=== PATIENT | male | born 1945 | race Caucasian/White ===

== ENCOUNTER 2023-02-08 01:23 | Emergency (ER) | payer BC, SELFPAY ==
[2023-02-08] VITALS (9 sets, daily range): BP systolic 107–142; BP diastolic 55–70; PULSE 60–75; RESP 16–23; TEMP 35.6; O2SAT 95–99; BMI 21.7
--- NOTE | 2023-02-08 01:53 | DI.RAD.S_ITS ---
PROCEDURE: XR CHEST 1V INDICATIONS: chest pain TECHNIQUE: One view of the chest was acquired. COMPARISON: None. FINDINGS: Surgical changes and devices: None. Lungs and pleura: Lungs are clear. No pleural effusions or pneumothorax. Mediastinum: Mediastinal contours appear normal. Heart size is normal. Bones and chest wall: No suspicious bony lesions. Overlying soft tissues appear unremarkable. IMPRESSION: No acute cardiopulmonary abnormality. There is no significant discrepancy when compared to the overnight preliminary report. Approved by: Leonidas Ridley M.D. on 02/08/2023 at 8:11
--- NOTE | 2023-02-08 01:54 | ED.CHESTPAIN ---
HPI - Chest Pain General Chief Complaint: Back Pain/Injury Stated Complaint: pain in back left side Time Seen by Provider: 02/08/23 01:46 Source: patient Mode of arrival: Ambulatory Limitations: no limitations History of Present Illness HPI narrative: Patient 77-year-old male history of diabetes hypertension presenting today with diarrhea diaphoresis and left shoulder pain. He reports that he was having some body aches before bed he has been constipated he took some smooth move tea earlier woke up, found he was drenched in sweat got up to have a bowel movement and then noted some left shoulder pain. He is reports that he was muscle spasm definitely hurt to move his arm sometimes he gets muscle spasms in his neck he was not having any chest pain or shortness of breath. No nausea or vomiting. No longer having any abdominal pain. Overall feeling better. Related Data Allergies Allergy/AdvReac Type Severity Reaction Status Date / Time No Known Drug Allergies Allergy Verified 02/08/23 01:49 Review of Systems Review of Systems ROS Unobtainable: All systems reviewed & are unremarkable except as noted in HPI and below Patient History Social History Smoking Status: Never smoker Smoking Status: Never smoker alcohol intake frequency: 0-2 drinks per day Substance Use Type: does not use Exam Initial Vital Signs Initial Vital Signs: Vital Signs Temperature 96.1 F L 02/08/23 01:41 Pulse Rate 66 02/08/23 01:41 Respiratory Rate 20 02/08/23 01:41 Blood Pressure 142/68 H 02/08/23 01:41 Pulse Oximetry 99 02/08/23 01:41 Oxygen Delivery Method Room Air 02/08/23 01:41 GENERAL: Alert pleasant well-appearing 7-year-old male and in no acute distress. HEENT: Head atraumatic,EOMI, pupils reactive, face symmetric, moist mucous membranes CARDIOVASCULAR: Regular rate and rhythm without murmurs, rubs or gallops. RESPIRATORY: Breath sounds equal bilaterally, no wheezes rales or rhonchi. ABDOMEN: Soft, nontender. Normoactive bowel sounds all 4 quadrants. No guarding or rebound. BACK: Pinpoint tenderness in left shoulder blade pain is reproducible EXTREMITIES: Normal range of motion, no clubbing or edema. Neurovascularly intact NEUROLOGICAL: Alert and oriented x4.Normal gait and speech. Cranial nerves II through XII grossly intact. SKIN: Warm, dry, no laceration, no petechiae, no rashes or lesions. Course Orders Ordered: ED Orders 02/08/23 01:50 EKG-12 Lead Stat 02/08/23 01:53 XR chest 1V Stat 02/08/23 02:00 Complete Blood Count AUTO DIFF Stat Comprehensive Metabolic Panel Stat Lipase Stat Magnesium Stat PTT Partial Thromboplastin Masood Stat Prothrombin Time INR Stat Troponin & CK Cardiac Panel Stat 02/08/23 03:35 Trop I [Troponin I] Stat Discontinued Medications Acetaminophen (Acetaminophen 325 Mg Tablet) 975 mg PO NOW ONE Stop: 02/08/23 04:25 Last Admin: 02/08/23 04:30 Dose: 975 mg Documented By: SOL Aspirin (Aspirin 81 Mg Chew Tab) 324 mg PO NOW ONE Stop: 02/08/23 01:54 Last Admin: 02/08/23 02:17 Dose: Not Given Documented By: CHETNA Vital Signs Vital signs: Vital Signs - 8 hr 02/08/23 01:41 02/08/23 01:55 02/08/23 02:00 Temperature 96.1 F L Pulse Rate 66 67 69 Respiratory Rate 20 23 Blood Pressure 142/68 H Pulse Oximetry 99 Oxygen Delivery Method Room Air 02/08/23 02:05 02/08/23 02:05 02/08/23 02:30 Temperature Pulse Rate 63 Respiratory Rate 20 Blood Pressure 124/56 L 120/59 L Pulse Oximetry 97 Oxygen Delivery Method Room Air 02/08/23 02:30 02/08/23 03:00 02/08/23 03:00 Temperature Pulse Rate 63 60 Respiratory Rate 17 16 Blood Pressure 107/55 L Pulse Oximetry 97 95 Oxygen Delivery Method Room Air Room Air 02/08/23 03:30 02/08/23 03:30 02/08/23 04:00 Temperature Pulse Rate 75 Respiratory Rate 19 Blood Pressure 115/70 127/61 Pulse Oximetry 98 Oxygen Delivery Method 02/08/23 04:00 02/08/23 04:23 02/08/23 04:23 Temperature Pulse Rate 61 Respiratory Rate 19 Blood Pressure 115/62 Pulse Oximetry 97 98 Oxygen Delivery Method MDM - Chest Pain Lab Data 02/08/23 02:00 02/08/23 02:00 Labs: Lab Results 06/23/23 06/23/23 06/23/23 Range/Units 02:00 02:00 02:00 WBC 5.7 (4.5-11.0) X10^3/uL RBC 3.73 L (4.5-5.9) X10^6/uL Hgb 11.8 L (13.5-17.5) g/dL Hct 34.7 L (41-53) % MCV 93.1 (80-100) fL MCH 31.6 (26-34) PG MCHC 33.9 (30-36) % RDW 13.6 (11.6-14.8) % Plt Count 212 (150-400) X10^3/uL Neut % (Auto) 59.5 (50-75) % Lymph % (Auto) 22.5 L (25-40) % Woodruff % (Auto) 13.1 (3-14) % Eos % (Auto) 4.3 H (2-4) % Baso % (Auto) 0.6 (0-2) % Neut # (Auto) 3400 (6557-5560) /uL Lymph # (Auto) 1300 (0994-3107) /uL Woodruff # (Auto) 700 (0-900) /uL Eos # (Auto) 200 (0-450) /uL Baso # (Auto) 0 (0-100) /uL PT 11.3 (10.1-12.7) SECONDS INR 1.0 (0.9-1.3) APTT 25 L (26-36) SECONDS Sodium 137 (137-145) mmol/L Potassium 3.9 (3.4-5.1) mmol/L Chloride 102 (98-107) mmol/L Carbon Dioxide 24 (22-32) mmol/L BUN 32 H (9-20) mg/dL Creatinine 1.26 H (0.66-1.25) mg/dL Estimated GFR 59 L (>60) mL/min BUN/Creatinine Ratio 25.4 H (6-22) Glucose 182 H (80-110) mg/dL Calcium 9.4 (8.4-10.2) mg/dL Magnesium 1.4 L (1.6-2.3) mg/dL Total Bilirubin 0.3 (0.2-1.3) mg/dL AST 26 (17-59) IU/L ALT 28 (<50) IU/L Alkaline Phosphatase 92 (38-126) U/L Total Creatine Kinase 95 (55-170) U/L CK-MB (CK-2) TNP CK-MB (CK-2) Rel Index TNP Troponin I < 0.012 (0.01-0.034) ng/mL Total Protein 7.5 (6.3-8.2) g/dL Albumin 4.0 (3.5-5.0) g/dL Globulin 3.5 (1.7-4.1) g/dL Albumin/Globulin Ratio 1.1 (1.0-2.8) Lipase 160 (23-300) U/L 02/08/23 Range/Units 03:35 WBC (4.5-11.0) X10^3/uL RBC (4.5-5.9) X10^6/uL Hgb (13.5-17.5) g/dL Hct (41-53) % MCV (80-100) fL MCH (26-34) PG MCHC (30-36) % RDW (11.6-14.8) % Plt Count (150-400) X10^3/uL Neut % (Auto) (50-75) % Lymph % (Auto) (25-40) % Woodruff % (Auto) (3-14) % Eos % (Auto) (2-4) % Baso % (Auto) (0-2) % Neut # (Auto) (8948-8160) /uL Lymph # (Auto) (9928-2068) /uL Woodruff # (Auto) (0-900) /uL Eos # (Auto) (0-450) /uL Baso # (Auto) (0-100) /uL PT (10.1-12.7) SECONDS INR (0.9-1.3) APTT (26-36) SECONDS Sodium (137-145) mmol/L Potassium (3.4-5.1) mmol/L Chloride (98-107) mmol/L Carbon Dioxide (22-32) mmol/L BUN (9-20) mg/dL Creatinine (0.66-1.25) mg/dL Estimated GFR (>60) mL/min BUN/Creatinine Ratio (6-22) Glucose (80-110) mg/dL Calcium (8.4-10.2) mg/dL Magnesium (1.6-2.3) mg/dL Total Bilirubin (0.2-1.3) mg/dL AST (17-59) IU/L ALT (<50) IU/L Alkaline Phosphatase (38-126) U/L Total Creatine Kinase (55-170) U/L CK-MB (CK-2) CK-MB (CK-2) Rel Index Troponin I < 0.012 (0.01-0.034) ng/mL Total Protein (6.3-8.2) g/dL Albumin (3.5-5.0) g/dL Globulin (1.7-4.1) g/dL Albumin/Globulin Ratio (1.0-2.8) Lipase (23-300) U/L Imaging Data Chest x-ray: Radiologist's Impression: Preliminary report no acute finding ECG Data Interpretation: Sinus rhythm rate 70 IN interval 176 QRS [address] changes right bundle-branch block noted no priors to compare MDM Narrative Medical decision making narrative: Patient 77-year-old male history of diabetes presenting today with right symptoms. He was previously constipated had some smooth move tea then had an episode of diarrhea tonight just prior he got extremely diaphoretic. Also having left shoulder pain which is worse with palpation and movement. Abdomen is soft nontender no nausea or vomiting. Blood work is reassuring no leukocytosis mild anemia hemoglobin 11.8 without evidence of active bleeding, BUN 32 creatinine 1.26 but no other electrolyte abnormalities glucose is 182. I questioned patient about his kidney function who reports that he has had kidney function the past and was told to just drink more fluid. He has 2- troponins pain in back is definitely reproducible seems very musculoskeletal and unlikely to be cardiac in nature. I suspect the diaphoresis he experience was secondary to some diarrhea. Mildly anemic but denies any rectal bleeding. At this time recommend outpatient follow-up with his primary care provider. Discharge Plan Departure Patient Disposition: Home Clinical Impression: Atypical chest pain, Diarrhea, FATMATA (acute kidney injury) Instructions: DI for Atypical Chest Pain Activity Restrictions/Additional Instructions: *You have been diagnosed with atypical chest pain, diarrhea *What to do: At this please talk with your provider about further cardiac workup. However this is not related to your heart. The sweating was probably related to diarrhea. Your kidney function is slightly abnormal please follow with your PCP. *Continue to take medications as directed *Follow up with your primary care provider in 2-3 days or call [phone] *Return to ER if you should have increasing pain chest pain shortness of breath sweatiness or any new, worsening or concerning symptoms Stand Alone Forms: Patient Portal/API
[2023-02-08 02:30] LABS: Prothrombin Time 11.3 SECONDS (10.1-12.7)
[2023-02-08 02:32] LABS: Add Manual Diff / Slide Review NO; Basophils Absolute Auto 0 /uL (0-100); Basophils Percent Auto 0.6 % (0-2); Eosinophils Absolute Auto 200 /uL (0-450); Eosinophils Percent Auto 4.3 % (2-4); Hematocrit 34.7 % (41-53); Hemoglobin 11.8 g/dL (13.5-17.5); Lymphocytes Absolute Auto 1300 /uL (1100-4500); Lymphocytes Percent Auto 22.5 % (25-40); Mean Corpuscular HGB Conc 33.9 % (30-36); Mean Corpuscular Hemoglobin 31.6 PG (26-34); Mean Corpuscular Volume 93.1 fL (80-100); Monocytes Absolute Auto 700 /uL (0-900); Monocytes Percent Auto 13.1 % (3-14); Neutrophils Absolute Auto 3400 /uL (1500-7000); Neutrophils Percent Auto 59.5 % (50-75); Platelet Count 212 X10^3/uL (150-400); Red Blood Cell Count 3.73 X10^6/uL (4.5-5.9); Red Cell Distribution Width 13.6 % (11.6-14.8); White Blood Cell Count 5.7 X10^3/uL (4.5-11.0)
[2023-02-08 02:33] LABS: PTT Partial Thromboplastin Tim 25 SECONDS (26-36)
[2023-02-08 02:35] LABS: Alanine Aminotransferase 28 IU/L (<50); Albumin Globulin Ratio 1.1 (1.0-2.8); Alkaline Phosphatase 92 U/L (38-126); Aspartate Aminotransferase 26 IU/L (17-59); BUN Creatinine Ratio 25.4 (6-22); Bilirubin Total 0.3 mg/dL (0.2-1.3); Blood Urea Nitrogen 32 mg/dL (9-20); Calcium 9.4 mg/dL (8.4-10.2); Carbon Dioxide 24 mmol/L (22-32); Chloride 102 mmol/L (98-107); Creatine Kinase 95 U/L (55-170); Estimated Glomerular Filt Rate 59 mL/min (>60); Globulin 3.5 g/dL (1.7-4.1); Glucose 182 mg/dL (80-110); HEMOLYSIS < 15 (0-50); Lipase 160 U/L (23-300); Magnesium 1.4 mg/dL (1.6-2.3); Potassium 3.9 mmol/L (3.4-5.1); Sodium 137 mmol/L (137-145); Total Protein 7.5 g/dL (6.3-8.2)
[2023-02-08 02:46] LABS: Troponin I < 0.012 ng/mL (0.01-0.034)
[2023-02-08 04:08] LABS: Troponin I < 0.012 ng/mL (0.01-0.034)
[2023-02-08] MEDS: ACETAMINOPHEN 325 MG TABLET 975 MG PO (04:30)
== END 2023-02-08 04:32 | disposition home or self-care (01) ==
PROVIDERS: Emergency Provider Emergency Medicine
DX: R07.89 Other chest pain (principal); R19.7 Diarrhea, unspecified; N17.9 Acute kidney failure, unspecified
CPT/HCPCS: 36415; 71045; 80053; 82550; 83690; 83735; 84484; 85025; 85610; 85730; 93005; 99284